=== PATIENT | female | born 1955 | race Caucasian/White ===

== ENCOUNTER 2017-02-27 11:51 | Inpatient (IN) | payer BC ==
[~2017-02-27] VITALS: Ht 152.4 cm; Wt 82.9 kg
[~2017-02-27 11:51] MED LIST: ASPI-110 PO; CARD180C5 PO; LOSA100T3 PO; MULT1CHW PO; PSYL0.5213 PO; TOPA100T11 PO
[2017-02-28] MEDS ORDERED: MULTTAB67 PO (11:27)
[2017-02-28] MEDS ORDERED: TRAM50TA PO (11:28)
[2017-02-28 11:29] VITALS: BP 115/69; PULSE 62; RESP 18; TEMP 98.7; O2SAT 98
[2017-02-28] MEDS ORDERED: traMADol HCL 50 MG TAB PO PRN ×2 (11:45→13:30)
[2017-02-28] MEDS ORDERED: SODIUM CHLORIDE 0.9% FLUSH 10 ML FLUSH IV FLUSH PRN ×2 (11:45)
[2017-02-28] MEDS ORDERED: ceFAZolin 2 GM PREMIX 50 ML IV SCH (11:45)
[2017-02-28] MEDS ORDERED: Post-op Orders (for Pharmacy) MISC XX ONE (11:45)
[2017-02-28] MEDS ORDERED: HYDROmorphone HCL PF 2 MG/ML VIAL IV PRN (11:45)
[2017-02-28] MEDS ORDERED: BISACODYL 10 MG SUPP RECTAL PRN (11:45)
[2017-02-28] MEDS ORDERED: ACETAMINOPHEN 325 MG TAB PO PRN (11:45)
[2017-02-28] MEDS ORDERED: SENNOSIDES 8.6 MG TAB PO PRN (11:45)
[2017-02-28] MEDS ORDERED: diphenhydrAMINE HCL 25 MG CAP PO PRN (11:45)
[2017-02-28] MEDS ORDERED: PROMETHAZINE HCL 25 MG TAB PO PRN (11:45)
[2017-02-28] MEDS ORDERED: MORPHINE SULFATE 30 MG/30 ML PCA IV SCH (11:45)
[2017-02-28] MEDS ORDERED: ONDANSETRON HCL 4 MG/2 ML VIAL IVP PRN (11:45)
[2017-02-28] MEDS ORDERED: diphenhydrAMINE HCL 50 MG/ML VIAL IV PRN ×2 (11:45)
[2017-02-28] MEDS ORDERED: NALOXONE HCL 0.4 MG/ML AMP IV PRN ×2 (11:45)
[2017-02-28] MEDS ORDERED: ZOLPIDEM TARTRATE 5 MG TAB PO PRN (11:45)
[2017-02-28] MEDS ORDERED: LACTULOSE SYRUP 20 GM/30 ML CUP PO PRN (11:45)
[2017-02-28] MEDS ORDERED: MAGNESIUM HYDROXIDE SUSP 30 ML CUP PO PRN (11:45)
[2017-02-28] MEDS ORDERED: VANCOMYCIN INJ 1,000 MG in SODIUM CHLOR 0.9% 250 ML INJ 250 ML IV SCH (11:45)
[2017-02-28] MEDS ORDERED: POVIDONE IODINE 5% (ANTISEPSIS KIT) 4 APPLICATIONS EACH NARE PRN (12:00)
[2017-02-28] MEDS ORDERED: CHLORHEXIDINE GLUCONATE 2 % 1 PACK (2 CLOTHS) TOPICAL PRN (12:00)
[2017-02-28] MEDS ORDERED: METOPROLOL TARTRATE 25 MG TAB PO PRN (12:00)
[2017-02-28] MEDS ORDERED: INSULIN HUMAN REGULAR 1,000 UNITS/10 ML VIAL SQ PRN (12:00)
[2017-02-28] MEDS ORDERED: LACTATED RINGER'S 1000 ML IV PRN (12:00)
[2017-02-28] MEDS ORDERED: SODIUM CHLORID 0.9% 500 ML IV PRN (12:00)
[2017-02-28] MEDS ORDERED: GENTAMICIN SULFATE 80 MG/2 ML VIAL ONE (12:53)
[2017-02-28] MEDS ORDERED: DEXAMETHASONE SOD PHOS 4 MG/ML VIAL ONE (12:54)
[2017-02-28] MEDS ORDERED: ACETAMINOPHEN 1000 MG/100 ML VIAL IV ONE (12:55)
[2017-02-28] MEDS ORDERED: FAMOTIDINE 20 MG/2 ML VIAL ONE (12:55)
[2017-02-28] MEDS ORDERED: APREPITANT 40 MG CAP ONE (12:56)
[2017-02-28] MEDS ORDERED: MIDAZOLAM HCL 2 MG/2 ML VIAL ONE (13:01)
--- NOTE | 2017-02-28 13:07 | HHI.FF ---
Face to Face Verification Diagnosis: (1) Osteoarthritis of right knee Physical Therapy Gait training Knee: Total knee Right LE Weight Bearing: WB as tolerated Right LE Range of Motion: Active ROM Nursing Dressing Changes: Do not change dressing, Other Additional Instructions reinforce if necessary I have seen patient Nyla Landeros on 02/28/17. My clinical findings support the need for the requested home health care services because: Ltd mobility - disease progression High risk of falls I certify that my clinical findings support that this patient is homebound because: Post-op weakness Unsteady gait/balance Bharathi Henderson Jr., MD Feb 28, 2017 13:07
[2017-02-28] MEDS ORDERED: SODIUM CHLORIDE 0.9% 20 ML VIAL ONE (13:11)
--- NOTE | 2017-02-28 13:11 | HHI.DS ---
Discharge Summary Admission Date Feb 28, 2017 at 10:37 Discharge Date: Mar 02, 2017 Admitting Diagnosis right knee osteoarthritis Diagnosis: (1) Osteoarthritis of right knee Diagnosis: Principal Brief History This is a 61 year old female patient with right knee osteoarthritis pain that has become debilitating for more than 1year. she has failed conservative care. please see office note for preop workup. Significant Findings Laboratory Tests Test 02/28/17 11:20 Antibody Screen POSITIVE Hospital Course The patient was taken to the operating room by the undersigned for the above procedures which she tolerated well. She extubated then transferred to PACU in stable condition. The patient was subsequently transferred to the floor. The rest of his hospital stay was uneventful. After second procedure, she received adequate postoperative antibiotics. diet was advanced as tolerated and he had full return of bowel function as well as making adequate urine output. We were able to covert IV pain meds to po pain meds. The patient received adequate physical therapy during his stay in is being discharged with detailed physical therapy recommendations. The patient was seen and examined on the day of discharge and found to be in stable condition. On Exam at discharge: Operative extremity was neurovascularly intact with dressing that was clean, dry and intact. Follow-up 10-[address] Henderson @ orthopaedic clinic with a Carly Mccoy. Pt Condition on Discharge: Good Discharge Disposition: Disch w/ Home Health Serv Discharge Instructions Diet Instructions: As Tolerated, No Restrictions Activities You Can Perform: Regular-No Restrictions, Weight Bearing as [place] Activities to Avoid: Driving for 24 hrs, Lifting/Bending, Weight Bearing Bharathi Henderson Jr., MD Feb 28, 2017 13:11
[2017-02-28] MEDS ORDERED: ASPI325T PO (13:15)
[2017-02-28] MEDS ORDERED: ROLLER WALKER1 MI1 (13:15)
[2017-02-28] MEDS ORDERED: COMMODE 3-IN-11 MIS (13:15)
[2017-02-28] MEDS ORDERED: TRANEXAMIC ACID 1,000 MG/100 ML NS INTRA-OP IV ONE ×2 (13:15)
[2017-02-28] MEDS ORDERED: DILA2TAB2 PO (13:15)
[2017-02-28] MEDS ORDERED: HYDROmorphone HCL 2 MG TAB PO PRN (13:30)
[2017-02-28] MEDS ORDERED: TRANEXAMIC ACID INJ 829 MG in SODIUM CHLORIDE 0.9% INJ 100 ML IV SCH (14:00)
[2017-02-28] MEDS ORDERED: BUPIVACAINE LIPOSOME PF 1.3% 20 ML VIAL P-ARTICULR ONE (14:12)
[2017-02-28] MEDS ORDERED: ePHEDrine/NS 25 MG/5 ML SYR IV ONE (15:01)
[2017-02-28] MEDS ORDERED: PHENYLEPH/NS 1000 MCG/10 ML SYR IV ONE (15:01)
[2017-02-28] MEDS ORDERED: NEOSTIGMINE 3 MG/3 ML SYR IV ONE (15:01)
[2017-02-28] MEDS ORDERED: PROPOFOL 200 MG/20 ML AMP IV ONE (15:01)
[2017-02-28] MEDS ORDERED: ONDANSETRON HCL 4 MG/2 ML VIAL IV PUSH ONE (15:02)
[2017-02-28] MEDS ORDERED: LACTATED RINGER'S 1000 ML INJ 1,000 ML IV ONE (15:02)
--- NOTE | 2017-02-28 16:04 | PD.OP ---
cc: Bharathi Henderson Jr., MD Operative Report Date of Surgery: Feb 28, 2017 Preoperative Diagnosis: right degenerative knee osteoarthritis Postoperative Diagnosis: same Procedure: right total knee arthroplasty Anesthesia: general Surgeon: Bharathi Henderson Notch Grinder(s): PIOTR De Paz The surgical procedure was assisted by my Advanced Registered Nurse Practitioner. My ADVERTISING MANAGER presence was necessary throughout this case for the manipulation and positioning of the surgical extremity. My ADVERTISING MANAGER was assisting me throughout the duration of this procedure. The skill set of an Advance Registered Nurse Practitioner was medically necessary to complete this procedure. During the surgical case, the certified surgical first assistant was working at the back table and the Advance Registered Nurse Practitioner was directly assisting me. Resident Surgeon: none Operation and Findings: Implants: Depuy Attune Tibia size 5 Femur size 3 Insert size 5, 5mm PS The patient has end-stage osteoarthritis to the knee. There is an attached conservative measures pathway form in the chart that describes the nonoperative measures that were undertaken prior to consideration of surgical management. The patient understood the risks and benefits of surgical management. See my office notes for further details PROCEDURE: The patient was brought back to the operative theatre. Adequate anesthesia was obtained. The patient received intravenous vanc and ancef. The RIGHT lower extremity was prepped and draped in the usual sterile fashion.The tourniquet was raised. A standard anterior midline incision was performed followed by medial parapatellar arthrotomy was performed. End-stage arthritis was identified. Osteotomy of the patella was performed. We drilled holes for the patella. We trialed the patella component. Fat pad was excised. Using a Dietrich elevator, the tight medial structures were released up to the mid coronal plane. We placed an intramedullary guide into the distal femur. We ultimately resected 9 mm off of the distal femur in 5 degrees of valgus. The remnants of the ACL and PCL were resected. Osteotomy of the proximal tibia was performed. This was done with 3 degrees of posterior slope using an extramedullary guide. The distal end of the guide was placed in the mid aspect of the ankle. The femur was sized, and four chamfer cuts were completed. We then cut the central box in the distal femur to replace the PCL. We resected the remnants of the menisci and removed osteophytes off of the femur and tibia. We then trialed the knee. We punched the tibia for the keel, and then used standard technique to cement in components. Excess cement was removed. We trialed the knee again and the final polyethylene thickness was chosen to provide extension to 0 degrees, and flexion of 140 degrees to gravity. The ligaments were appropriately balanced. Lateral release was not necessary to obtain excellent patellofemoral tracking. The final polyethylene was put into position after thorough irrigation. The tourniquet was released and adequate hemostasis was obtained. We then closed deep fascia with a #2 Stratafix followed by skin with 2-0 Vicryl followed by monocryl on the skin. POSTP-OP PLAN OF ACTIVITY Antibiotics: Ancef, vancomycin DVT prophylaxis will be performed with SCD[place], TI wright, early mobilization, and Lovenox while hospitalized (ASA at discharge). Patient has one kidney Weight bearing status: wbat PT/OT: Making progress with PT. Encourage at least 3 times a day Dressing: none Dispo: expected discharge 2 days with home health Bharathi Henderson Jr., MD Feb 28, 2017 16:04
[2017-02-28] MEDS ORDERED: fentaNYL CITRATE 250 MCG/5 ML AMP ONE (16:32)
[2017-02-28] MEDS ORDERED: *ONDANSETRON 4 MG VIAL PERIprocedural Use ONLY ONE (16:38)
[2017-02-28] MEDS ORDERED: *morphine SULFATE 8 MG/ML PERIprocedure ONLY ONE (16:54)
--- NOTE | 2017-02-28 17:12 | RADRPT ---
EXAM DATE/TIME: 02/28/2017 16:50 [facility] COMPARISON: No previous studies available for comparison. INDICATIONS : Post op right knee surgery. MEDICAL HISTORY : None. SURGICAL HISTORY : None. ENCOUNTER: Initial ACUITY: 1 day PAIN SCORE: 0/10 LOCATION: Right Knee. FINDINGS: Postsurgical features of right knee arthroplasty. Arthroplasty components are in anatomic alignment. No significant acute bony fracture. Immediate postsurgical soft tissue features. CONCLUSION: 1. Status post right knee arthroplasty in anatomic alignment without significant acute bony fracture. Gentry Suarez MD on February 28, 2017 at 17:10 Board Certified Radiologist. This report was verified electronically.
[2017-02-28] MEDS: KETOROLAC TROMETHAMINE 30 MG/ML (IVP) VIAL IVP SCH ×2 (17:55→22:18)
[2017-02-28] MEDS: LACTATED RINGER'S 1000 ML INJ 1,000 ML IV SCH (17:56)
[2017-02-28] MEDS ORDERED: TRANEXAMIC ACID INJ 500 MG in SODIUM CHLORIDE 0.9% INJ 100 ML IV ONE (18:00)
[2017-02-28] MEDS ORDERED: DO NOT ADM ANY ANTICOAGULANT DRUGS PRN (18:00)
--- NOTE | 2017-02-28 19:05 | EKG ---
Date Performed: 02/28/2017 Time Performed: 11:42:02 PTAGE: 61 years EKG: Sinus rhythm NORMAL ECG NO PREVIOUS TRACING DOCTOR: Enid Mora Interpretating Date/Time 02/28/2017 19:03:58
[2017-02-28 19:15] VITALS: BP 112/71; PULSE 68; RESP 17; TEMP 97.3; O2SAT 99
[2017-02-28] MEDS: DOCUSATE SODIUM 50 MG/SENNA 8.6 MG TAB PO SCH (21:00)
[2017-02-28] MEDS ORDERED: SODIUM CHLORIDE 0.9% FLUSH 10 ML FLUSH IV FLUSH SCH (21:00)
[2017-02-28 21:59] VITALS: O2SAT 93
[2017-02-28] MEDS: PCA - TOTAL MG MORPHINE DELIVERED PER SHIFT SCH (22:00)
[2017-02-28] MEDS: DOCUSATE SODIUM 100 MG CAP PO SCH (22:18)
[2017-02-28] MEDS: DILTIAZEM-CD 180 MG CAP ER PO SCH (22:18)
[2017-02-28] MEDS: TOPIRAMATE 100 MG TAB PO SCH (23:10)
[2017-03-01] VITALS: BP 99/59; PULSE 71; RESP 16; TEMP 97.4; O2SAT 94
[2017-03-01] MEDS: VANCOMYCIN INJ 1,000 MG in SODIUM CHLOR 0.9% 250 ML INJ 250 ML IV SCH ×2 (00:59→12:48)
[2017-03-01 04:00] VITALS: BP 98/62; PULSE 75; RESP 16; TEMP 97.5; O2SAT 95
[2017-03-01] MEDS: KETOROLAC TROMETHAMINE 30 MG/ML (IVP) VIAL IVP SCH ×4 (04:00→23:36)
[2017-03-01] MEDS: PCA - TOTAL MG MORPHINE DELIVERED PER SHIFT SCH ×3 (06:00→22:00)
[2017-03-01 07:03] LABS: HEMATOCRIT 29.6 % (35.0-46.0); MEAN CELL VOLUME 95.9 FL (80.0-100.0); MEAN CORPUSCULAR HEMOGLOBIN 32.3 PG (27.0-34.0); MEAN CORPUSCULAR HGB CONC 33.7 % (32.0-36.0); PLATELET COUNT 139 TH/MM3 (150-450); RED BLOOD COUNT 3.09 MIL/MM3 (4.00-5.30); RED CELL DISTRIBUTION WIDTH 14.1 % (11.6-17.2); REVIEW FLAG FINAL
[2017-03-01 07:25] LABS: POTASSIUM 3.6 MEQ/L (3.5-5.1)
[2017-03-01 07:30] VITALS: BP 94/57; PULSE 68; RESP 20; TEMP 96.9; O2SAT 99
[2017-03-01] MEDS: LACTATED RINGER'S 1000 ML INJ 1,000 ML IV SCH ×2 (08:15→19:00)
[2017-03-01] MEDS: SODIUM CHLORIDE 0.9% FLUSH 10 ML FLUSH IV FLUSH SCH ×3 (08:16→23:39)
[2017-03-01] MEDS: HYDROCHLOROTHIAZIDE 12.5 MG CAP PO SCH (09:00)
[2017-03-01] MEDS ORDERED: NON-FORMULARY DRUG (Losartan-Hydrochlorothiazide 1 TAB) PO SCH (09:00)
[2017-03-01] MEDS: LOSARTAN 50 MG TAB PO SCH (09:00)
[2017-03-01] MEDS: DOCUSATE SODIUM 100 MG CAP PO SCH ×2 (09:48→23:37)
[2017-03-01] MEDS: DOCUSATE SODIUM 50 MG/SENNA 8.6 MG TAB PO SCH ×2 (09:50→23:40)
[2017-03-01 12:00] VITALS: BP 92/59; PULSE 66; RESP 20; TEMP 97.5; O2SAT 97
--- NOTE | 2017-03-01 13:51 | HHI.PR ---
Subjective Remarks Mrs. Landeros is a 61-year-old female. She is admitted for a right total knee surgery. Past medical history is hypertension, diverticulosis, adhesion surgery, and 3 C-sections. She denies any smoking or drinking. When seen this morning she is doing well with good pain control. She has been up and ambulating already. She is anticipating a discharge home tomorrow if physical activities continue to improve. No acute concerns. Hemoglobin levels remained stable postop. Objective Vital Signs Date Time Temp Pulse Resp B/P Pulse Ox O2 Delivery O2 Flow Rate FiO2 03/01/17 12:00 97.5 66 20 92/59 97 03/01/17 07:30 96.9 68 20 94/57 99 03/01/17 04:00 97.5 75 16 98/62 95 03/01/17 00:00 97.4 71 16 99/59 94 02/28/17 22:00 18 02/28/17 21:59 93 21 02/28/17 19:15 97.3 68 17 112/71 99 02/28/17 18:18 15 02/28/17 18:00 97.6 77 16 108/65 96 Nasal Cannula 2 02/28/17 17:45 72 16 109/64 97 Nasal Cannula 2 02/28/17 17:30 74 16 105/67 97 Nasal Cannula 2 02/28/17 17:15 72 16 106/61 96 Nasal Cannula 2 02/28/17 17:00 69 15 102/63 96 Nasal Cannula 2 02/28/17 16:45 72 15 102/62 95 Nasal Cannula 2 02/28/17 16:30 73 15 115/68 94 Nasal Cannula 2 02/28/17 16:25 97.7 76 18 109/67 100 Nasal Cannula 3 I/O 02/28/17 02/28/17 02/28/17 03/01/17 03/01/17 03/01/17 07:00 15:00 23:00 07:00 15:00 23:00 Intake Total 2270 ml 480 ml Output Total 1250 ml Balance 1020 ml 480 ml Intake Oral 720 ml 480 ml Other 1550 ml Output Urine Total 1100 ml Estimated Blood Loss 150 ml Result Diagram: 03/01/17 0554 03/01/17 0554 Objective Remarks GENERAL: NAD, A&Ox3 HEAD: Normocephalic. NECK: Supple, trachea midline. No lymphadenopathy. EYES: No scleral icterus. No injection or drainage. CARDIOVASCULAR: Regular rate and rhythm without murmurs, gallops, or rubs. RESPIRATORY: Breath sounds equal bilaterally. No accessory muscle use. GASTROINTESTINAL: Abdomen soft, non-tender, nondistended. MUSCULOSKELETAL: No cyanosis, or edema. Right leg is bandaged SKIN: Warm and dry. NEURO: No focal neurological deficitis. A/P Problem List: (1) Osteoarthritis of right knee ICD Code: M17.11 Assessment and Plan Assessment and plan 61-year-old female admitted for right total knee Status post right TKA Continue pain treatments Orthopedic surgeons following PT Follow for improvement in ambulation Possible discharge home tomorrow Hypertension Intermittent low readings Home blood pressure treatments Etiology for blood pressures in secondary narcotics Consider resuming home treatments when patient's blood pressures start to elevate Monitor blood pressures for now History of diverticulosis Asymptomatic Follow clinically DVT prophylaxis Xarelto Discharge planning Possible discharge home tomorrow if patient's physical status continues to improve quickly Johnnie Madsen MD Mar 01, 2017 13:51
--- NOTE | 2017-03-01 13:53 | PD.CONS ---
HPI Service [facility] Hospital[facility] Consult Requested By Primary Care Physician Evelio German MD Diagnoses: Past Family Social History Allergies: Coded Allergies: Codeine (Verified Adverse Reaction, Severe, VOMITING, 02/28/17) Past Medical History Hypertension Diverticulosis Past Surgical History 3 C-sections Laparoscopic adhesion lysis Reported Medications Reported Meds & Active Scripts Active Dilaudid (Hydromorphone HCl) 2 Mg Tab 2 Mg PO Q4H PRN 45 Days Aspirin 325 Mg Tab 325 Mg PO DAILY 30 Days Roller Walker (Misc. Devices) 1 Mis Mis 1 Ea .ROUTE NOW Commode 3-in-1 (Device) 1 Mis Mis 1 Ea .ROUTE DIRECTED Reported Tramadol (Tramadol HCl) 50 Mg Tab 50 Mg PO BID PRN Multiple Vitamin 1 Tab 1 Tab PO DAILY Aspirin 81 (Aspirin) 81 Mg Tabdr 81 Mg PO DAILY Daily Fiber (Psyllium Husk) 0.52 Gm Capsule 1 Cap PO DAILY Cardizem CD 24 HR (Diltiazem CD 24 HR) 180 Mg Caper 180 Mg PO HS Topamax (Topiramate) 100 Mg Tab 100 Mg PO HS Losartan-Hydrochlorothiazide 100-12.5 Mg Tab 1 Tab PO DAILY Active Ordered Medications Administered Medications Medications (Trade) Dose Ordered Sig/[place] Route PRN Reason Start Time Stop Time Status Last Admin Dose Admin Docusate Sodium (Colace) 100 mg BID PO 02/28/17 21:00 03/01/17 09:48 Sodium Chloride (NS Flush) 2 ml BID IV FLUSH 02/28/17 21:00 03/01/17 08:16 Ketorolac Tromethamine (Toradol Inj) 15 mg Q6H IVP 02/28/17 16:00 03/02/17 10:01 03/01/17 09:48 Senna/Docusate Sodium (Mikayla-Colace) 1 tab BID PO 02/28/17 21:00 03/01/17 09:50 Morphine Sulfate (Morphine 1 Mg/ ml LOCAL DELIVERY TRUCK DRIVER) 30 mg UNSCH IV 02/28/17 11:45 02/28/17 18:18 LOCAL DELIVERY TRUCK DRIVER Dosage Infused (Pha) 1 1 Q8HR .XX 02/28/17 14:00 03/01/17 06:00 Lactated Ringer's (Lr 1000 ml Inj) 1,000 ml @ 30 mls/hr Q24H PRN IV SEE LABEL COMMENTS 02/28/17 12:00 03/03/17 11:59 02/28/17 11:10 Diltiazem HCl (Cardizem Cd) 180 mg HS PO 02/28/17 21:00 02/28/17 22:18 Topiramate 100 mg 100 mg HS PO 02/28/17 21:00 02/28/17 23:10 Lactated Ringer's (Lr 1000 ml Inj) 1,000 ml @ 80 mls/hr [id number] IV 02/28/17 18:00 03/01/17 08:15 Family History Crohn's disease in brother Bone cancer in mother COPD in father Chronic kidney disease in several relatives Social History No alcohol abuse No nicotine abuse No drug abuse Physical Exam Vital Signs Vital Signs Date Time Temp Pulse Resp B/P Pulse Ox O2 Delivery O2 Flow Rate FiO2 03/01/17 12:00 97.5 66 20 92/59 97 03/01/17 07:30 96.9 68 20 94/57 99 03/01/17 04:00 97.5 75 16 98/62 95 03/01/17 00:00 97.4 71 16 99/59 94 02/28/17 22:00 18 02/28/17 21:59 93 21 02/28/17 19:15 97.3 68 17 112/71 99 02/28/17 18:18 15 02/28/17 18:00 97.6 77 16 108/65 96 Nasal Cannula 2 02/28/17 17:45 72 16 109/64 97 Nasal Cannula 2 02/28/17 17:30 74 16 105/67 97 Nasal Cannula 2 02/28/17 17:15 72 16 106/61 96 Nasal Cannula 2 02/28/17 17:00 69 15 102/63 96 Nasal Cannula 2 02/28/17 16:45 72 15 102/62 95 Nasal Cannula 2 02/28/17 16:30 73 15 115/68 94 Nasal Cannula 2 02/28/17 16:25 97.7 76 18 109/67 100 Nasal Cannula 3 Physical Exam GENERAL: NAD, A&Ox3 HEAD: Normocephalic. NECK: Supple, trachea midline. No lymphadenopathy. EYES: No scleral icterus. No injection or drainage. CARDIOVASCULAR: Regular rate and rhythm without murmurs, gallops, or rubs. RESPIRATORY: Breath sounds equal bilaterally. No accessory muscle use. GASTROINTESTINAL: Abdomen soft, non-tender, nondistended. MUSCULOSKELETAL: No cyanosis, or edema. Right knee is bandaged SKIN: Warm and dry. NEURO: No focal neurological deficitis. Laboratory Laboratory Tests Test 02/28/17 03/01/17 14:35 05:54 Antibody Identification Non-Specific Agglutinin White Blood Count 12.0 Red Blood Count 3.09 Hemoglobin 10.0 Hematocrit 29.6 Mean Corpuscular Volume 95.9 Mean Corpuscular Hemoglobin 32.3 Mean Corpuscular Hemoglobin 33.7 Concent Red Cell Distribution Width 14.1 Platelet Count 139 Mean Platelet Volume 9.6 Sodium Level 138 Potassium Level 3.6 Chloride Level 107 Carbon Dioxide Level 23.0 Anion Gap 8 Blood Urea Nitrogen 20 Creatinine 0.90 Estimat Glomerular Filtration 64 Rate Random Glucose 161 Calcium Level 7.8 Result Diagram: 03/01/17 0554 03/01/17 0554 Assessment and Plan Problem List: (1) Osteoarthritis of right knee ICD Code: M17.11 Status: Acute Assessment and Plan Assessment and plan 61-year-old female admitted for right total knee Status post right TKA Continue pain treatments Orthopedic surgeons following PT Follow for improvement in ambulation Possible discharge home tomorrow Hypertension Intermittent low readings Home blood pressure treatments Etiology for blood pressures in secondary narcotics Consider resuming home treatments when patient's blood pressures start to elevate Monitor blood pressures for now History of diverticulosis Asymptomatic Follow clinically DVT prophylaxis Xarelto Discharge planning Possible discharge home tomorrow if patient's physical status continues to improve quickly Johnnie Madsen MD Mar 01, 2017 1:53 pm
[2017-03-01] MEDS ORDERED: RIVAROXABAN 10 MG TAB PO SCH (15:00)
[2017-03-01 16:30] VITALS: BP 97/59; PULSE 74; RESP 20; TEMP 97.7; O2SAT 94
[2017-03-01 20:00] VITALS: BP 119/74; PULSE 76; RESP 16; TEMP 98.9; O2SAT 96
[2017-03-01] MEDS: DILTIAZEM-CD 180 MG CAP ER PO SCH (21:00)
--- NOTE | 2017-03-01 22:11 | PD.ORT.PN ---
Subjective Subjective Remarks no issues. no CP/SOB. doing well. wbat and using CPM. Objective Vitals Vital Signs Date Time Temp Pulse Resp B/P Pulse Ox O2 Delivery O2 Flow Rate FiO2 03/01/17 20:00 98.9 76 16 119/74 96 03/01/17 16:30 97.7 74 20 97/59 94 03/01/17 14:00 15 03/01/17 12:00 97.5 66 20 92/59 97 03/01/17 07:30 96.9 68 20 94/57 99 03/01/17 04:00 97.5 75 16 98/62 95 03/01/17 00:00 97.4 71 16 99/59 94 I/O 02/28/17 02/28/17 02/28/17 03/01/17 03/01/17 03/01/17 07:00 15:00 23:00 07:00 15:00 23:00 Intake Total 2270 ml 480 ml 500 ml Output Total 1250 ml Balance 1020 ml 480 ml 500 ml Intake Oral 720 ml 480 ml 500 ml Other 1550 ml Output Urine Total 1100 ml Estimated Blood Loss 150 ml # Voids 1 # Bowel Movements 0 Result Diagram: 03/01/17 0554 03/01/17 0554 Objective Remarks Alert awake and oriented -3. No acute distress. Pulmonary: Normal respiratory effort. Right lower extremity: Neurovascularly intact, +EHL/FHL, dressing clean, dry and intact. + PT/DP pulses. Supple compartments. Negative Homans sign. Left lower extremity: neurovascularly intact Assessment & Plan Problem List: (1) Osteoarthritis of right knee Assessment and Plan POD #1right total knee arthroplasty Doing well, expected postop pain, no complaints. Antibiotics: postop. 24hrs DVT prophylaxis: ASA 325mg qday- s/p nephrectomy Weightbearing status: wbat Dressing change: none PT/OT: Making progress with PT. Encourage at least 3 times a day. Dispo: home with HH saturday. rx in chart. All DME already at home. Follow-up: 2 weeks, Dr. Henderson, [facility] Bharathi Haider Jr., MD Mar 01, 2017 22:11
[2017-03-01] MEDS: HYDROmorphone HCL 2 MG TAB PO PRN (23:36)
[2017-03-01] MEDS: MULTIVITAMINS/MINERALS THERAPEUTIC TAB PO SCH (23:38)
[2017-03-01] MEDS: TOPIRAMATE 100 MG TAB PO SCH (23:40)
[2017-03-02] VITALS: BP 116/62; PULSE 100; RESP 20; TEMP 98.8; O2SAT 98
[2017-03-02] MEDS: KETOROLAC TROMETHAMINE 30 MG/ML (IVP) VIAL IVP SCH ×2 (04:00→09:44)
[2017-03-02 04:10] VITALS: BP 98/69; PULSE 76; RESP 17; TEMP 97; O2SAT 97
[2017-03-02] MEDS: PCA - TOTAL MG MORPHINE DELIVERED PER SHIFT SCH ×2 (06:00→11:46)
--- NOTE | 2017-03-02 06:46 | PD.ORT.PN ---
Subjective Subjective Remarks POD 2 s/p Right TKA by Dr Henderson -doing well. pain controlled. out of bed to bathroom. Using CPM machine Objective Vitals Vital Signs Date Time Temp Pulse Resp B/P Pulse Ox O2 Delivery O2 Flow Rate FiO2 03/02/17 04:10 97.0 76 17 98/69 97 03/02/17 00:00 98.8 100 20 116/62 98 03/01/17 22:00 18 03/01/17 20:00 98.9 76 16 119/74 96 03/01/17 16:30 97.7 74 20 97/59 94 03/01/17 14:00 15 03/01/17 12:00 97.5 66 20 92/59 97 03/01/17 07:30 96.9 68 20 94/57 99 I/O 03/01/17 03/01/17 03/01/17 03/02/17 03/02/17 03/02/17 07:00 15:00 23:00 07:00 15:00 23:00 Intake Total 480 ml 500 ml 720 ml Balance 480 ml 500 ml 720 ml Intake Oral 480 ml 500 ml 720 ml # Voids 1 2 # Bowel Movements 0 Result Diagram: 03/01/17 0554 03/01/17 0554 Objective Remarks Alert awake and oriented x3. No acute distress. Pulmonary: Normal respiratory effort. Right lower extremity: Neurovascularly intact, +EHL/FHL, dressing clean, dry and intact. + PT/DP pulses. Supple compartments. Negative Homans sign. Left lower extremity: neurovascularly intact Assessment & Plan Problem List: (1) Osteoarthritis of right knee Assessment and Plan POD #2right total knee arthroplasty Doing well, expected postop pain, no complaints. Antibiotics: postop. 24hrs DVT prophylaxis: ASA 325mg qday- s/p nephrectomy Weightbearing status: wbat Dressing change: none PT/OT: Making progress with PT. Encourage at least 3 times a day. Dispo: home with HH saturday. rx in chart. All DME already at home. Follow-up: 2 weeks, Dr. Henderson, [facility] Johnnie Avila Mar 02, 2017 06:46
[2017-03-02] MEDS: LACTATED RINGER'S 1000 ML INJ 1,000 ML IV SCH (07:30)
[2017-03-02 08:00] VITALS: BP 139/78; PULSE 79; RESP 18; TEMP 97.3; O2SAT 96
--- NOTE | 2017-03-02 08:24 | HHI.PR ---
Subjective Remarks Follow-up hypertension. Patient has minimal knee pain. She is stooling. Tolerating diet. She wants to go home today. Discussed with RN Objective Vitals Vital Signs Date Time Temp Pulse Resp B/P Pulse Ox O2 Delivery O2 Flow Rate FiO2 03/02/17 04:10 97.0 76 17 98/69 97 03/02/17 00:00 98.8 100 20 116/62 98 03/01/17 22:00 18 03/01/17 20:00 98.9 76 16 119/74 96 03/01/17 16:30 97.7 74 20 97/59 94 03/01/17 14:00 15 03/01/17 12:00 97.5 66 20 92/59 97 I/O 03/01/17 03/01/17 03/01/17 03/02/17 03/02/17 03/02/17 07:00 15:00 23:00 07:00 15:00 23:00 Intake Total 480 ml 500 ml 720 ml 720 ml Balance 480 ml 500 ml 720 ml 720 ml Intake Oral 480 ml 500 ml 720 ml 720 ml # Voids 1 2 4 # Bowel Movements 0 Result Diagram: 03/01/17 0554 03/01/17 0554 Imaging Last Impressions Knee X-Ray 02/28/17 0000 Signed Impressions: Service Date/Time: February 16:50 - CONCLUSION: 1. Status post right knee arthroplasty in anatomic alignment without significant acute bony fracture. Gentry Suarez MD Objective Remarks Well-developed obese in no distress No JVD supple neck Lungs are clear equal in expansion Regular rate and rhythm no murmur Extremities right lower extremity is heavily bandaged Alert and oriented A/P Problem List: (1) Osteoarthritis of right knee ICD Code: M17.11 Status: Acute Assessment and Plan 61-year-old female admitted for right total knee Status post right TKA. Stable Continue pain treatments Orthopedic surgeons following PT Postoperative anemia secondary to acute blood loss. Asymptomatic. Monitor Leukocytosis likely reactive Hypertension Intermittent low readings yesterday. Improved today Etiology for labile BP readings secondary to narcotics History of diverticulosis Asymptomatic Follow clinically DVT prophylaxis Xarelto, will be switched to aspirin after discharge per orthopedic surgery Discharge Planning Stable for discharge with home health care follow-up visiting nurse for BP monitoring Evelio Forde MD Mar 02, 2017 08:24 Evelio Forde MD Mar 02, 2017 08:24 Evelio Forde MD Mar 02, 2017 08:24
[2017-03-02] MEDS: HYDROCHLOROTHIAZIDE 12.5 MG CAP PO SCH (09:43)
[2017-03-02] MEDS: LOSARTAN 50 MG TAB PO SCH (09:43)
[2017-03-02] MEDS: DOCUSATE SODIUM 50 MG/SENNA 8.6 MG TAB PO SCH (09:43)
[2017-03-02] MEDS: MULTIVITAMINS/MINERALS THERAPEUTIC TAB PO SCH (09:43)
[2017-03-02] MEDS: HYDROmorphone HCL 2 MG TAB PO PRN (09:44)
[2017-03-02] MEDS: DOCUSATE SODIUM 100 MG CAP PO SCH (09:45)
[2017-03-02] MEDS: SODIUM CHLORIDE 0.9% FLUSH 10 ML FLUSH IV FLUSH SCH (09:45)
[2017-03-02 09:57] VITALS: O2SAT 98
[2017-03-02 11:47] VITALS: BP 128/77; PULSE 78; RESP 18; TEMP 97.5; O2SAT 97
[2017-03-02] MEDS ORDERED: DILA2TAB2 PO ×2 (14:26→14:38)
== END 2017-03-02 14:32 | disposition home health service (06) | DRG 470 ==
LOC: HSDI 02-28 10:37 → N06A 02-28 18:25
PROVIDERS: ADMIT Orthopaedic Surgery; ATTEND Orthopaedic Surgery
PROC: 0SRC0J9 Replacement of Right Knee Joint with Synthetic Substitute, Cemented, Open Approach (ICD-10-PCS; principal; 2017-02-28 13:18)
DX: M17.11 Unilateral primary osteoarthritis, right knee (principal); D62 Acute posthemorrhagic anemia; I10 Essential (primary) hypertension; D72.829 Elevated white blood cell count, unspecified; Z79.82 Long term (current) use of aspirin; Z90.5 Acquired absence of kidney
CPT/HCPCS: 73560; 80048; 85027; 86077; 86850; 86870; 86900; 86901; 86902; 86920; 86922; 93005; 94150; C1776; C9290; J0131; J0690; J1100; J1580; J1885; J2250; J2270; J2370; J2405; J2710; J3010; J3370; J7050; J7120; J8501; L1830